=== PATIENT | female | born 1970 | race Hispanic/Latino ===

== ENCOUNTER 2018-12-12 18:26 | Inpatient (IN) | payer OTHER, BC ==
[~2018-12-12] VITALS: Ht 154.9 cm; Wt 73.5 kg
[2018-12-12] MEDS ORDERED: MORPHINE SULFATE INJ 4 MG/ML INJ 1ML IV ONE (19:28)
[2018-12-12] MEDS ORDERED: ONDANSETRON HCL INJ 2MG/ML 2ML 2 MG/ML VIAL IV ONE (19:28)
[2018-12-12] MEDS ORDERED: DICYCLOMINE HCL 20 MG/2 ML VIAL IM ONE (19:30)
[2018-12-12 19:41] LABS: BILIRUBIN,URINE NEGATIVE (NEGATIVE); CLARITY,URINE CLEAR (CLEAR); COLOR,URINE YELLOW (YELLOW); KETONES,URINE NEGATIVE (NEGATIVE); LEUKOCYTE ESTERASE ,URINE NEGATIVE (NEGATIVE); NITRITE,URINE NEGATIVE (NEGATIVE); PROTEIN,URINE DIPSTICK NEGATIVE (NEGATIVE); URINE UROBILINOGEN 0.2 mg/dL (0.2 - 1)
[2018-12-12 19:55] LABS: BACTERIA,URINE MODERATE /HPF; EPITHELIAL CELLS,URINE MANY /LPF
[2018-12-12 19:56] LABS: AMORPHOUS SEDIMENT,URINE FEW (FEW); MUCUS,URINE FEW (RARE)
[2018-12-12 22:15] LABS: BASOPHILS % 0.4 % (0.0-1.0); EOSINOPHILS % 0.1 % (0.0-6.0); HEMATOCRIT 24.5 % (34.2-44.1); HEMOGLOBIN 7.6 g/dL (12.0-16.0); LYMPHOCYTES # (AUTO) 1.2 (1.0-3.2); LYMPHOCYTES % 17.1 % (18.0-39.1); MEAN CORPUSCULAR HEMOGLOBIN 25.2 pg (28-32); MEAN CORPUSCULAR VOLUME 81.1 fL (81-99); MONOCYTES # (AUTO) 0.5 (0.2-0.8); MONOCYTES % 6.8 % (4.4-11.3); NEUTROPHILS # (AUTO) 5.1 (2.1-6.9); NEUTROPHILS % 75.5 % (38.7-80.0); PLATELET COUNT 296 x10e3/uL (140-360); RED BLOOD COUNT 3.02 x10e6/uL (3.6-5.1); RED CELL DISTRIBUTION WIDTH 18.6 % (11.7-14.4)
--- NOTE | 2018-12-12 22:21 | Diagnostic Imaging Report ---
EXAM: Gallbladder Ultrasound INDICATION: Abdominal pain COMPARISON: None. TECHNIQUE: Transverse and longitudinal images of the gallbladder were obtained. FINDINGS: Liver: Normal size, 16 cm in cranial caudal dimension. Main portal vein nondilated. Hepatopedal flow in the main portal vein. Diffuse increased hepatic echogenicity. Gallbladder: Stones/Sludge: Echogenic shadowing gallstones, multiple are seen in the gallbladder neck. Wall: 0.3 cm, mildly thickened. Sonographic Galvan's Sign: Positive No pericholecystic fluid. The gallbladder is mildly distended. Bile Ducts: Intrahepatic Ducts: No dilatation Extrahepatic Ducts: Common bile duct measures 0.4 cm, no dilatation Free Fluid: No ascites or pleural effusion Pancreas is obscured by overlying bowel gas. Visualized portions of the aorta and inferior vena cava are unremarkable. IMPRESSION: 1. Cholelithiasis and positive sonographic Galvan's sign is suggestive of acute cholecystitis. 2. Findings suggestive of hepatic steatosis. Signed by: Dakota Starkey DO on 12/12/2018 10:17 PM
[2018-12-12 22:39] LABS: ALANINE AMINOTRANSFERASE 17 IU/L (0-55); ALBUMIN 3.3 g/dL (3.5-5.0); ALBUMIN/GLOBULIN RATIO 1.1 (0.8-2.0); ALKALINE PHOSPHATASE 46 IU/L (40-150); AMYLASE 46 U/L (25-125); ANION GAP 13.7 mmol/L (8-16); BLOOD UREA NITROGEN 17 mg/dL (7-26); BUN/CREATININE RATIO 24 (6-25); CALCIUM 8.8 mg/dL (8.4-10.2); CARBON DIOXIDE 22 mmol/L (22-29); CHLORIDE 109 mmol/L (98-107); CREATINE KINASE 43 IU/L (29-168); CREATININE, SERUM 0.72 mg/dL (0.57-1.11); EST GLOMERULAR FILTRATION RATE > 60 ML/MIN (60-); GLUCOSE 88 mg/dL (74-118); LIPASE 17 U/L (8-78); POTASSIUM 3.7 mmol/L (3.5-5.1); SODIUM 141 mmol/L (136-145)
--- OUTSIDE RECORDS SUMMARY | 2018-12-12 23:08 | XMS REPORT ---
Author Author [facility] Address Unknown Phone Unavailable Care Team Providers Care Sailing Officer Name Role Phone MARCELL CALLOWAY Unavailable Unavailable Problems This patient has no known problems. Allergies, Adverse Reactions, Alerts This patient has no known allergies or adverse reactions. Medications This patient has no known medications. Results Test Description Test Time Test Comments Text Results Atomic Results Result Comments US GALLBLADDER 2018-12-12 22:15:00 [place] [address] Patient Name: JUAN MANUEL JEFFERSON MR #: [id number] : 1970 Age/Sex: 48/F Req #: [id number] [facility] Physician: Ordered by: DEE DEE WELLER SURGICAL SERVICES COORDINATOR Report #: [id number] Location: ER Room/Bed: Procedure: [id number] US/US GALLBLADDER Exam Date: 12/12/18 Exam Time: 2009 REPORT STATUS: Signed EXAM: Gallbladder Ultrasound INDICATION: Abdominal pain COMPARISON: None. TECHNIQUE: Transverse and longitudinal images of the gallbladder were obtained. FINDINGS: Liver: Normal size, 16 cm in cranial caudal dimension. Main portal vein nondilated. Hepatopedal flow in the main portal vein. Diffuse increased hepatic echogenicity. Gallbladder: Stones/Sludge: Echogenic shadowing gallstones, multiple are seen in the g allbladder neck. Wall: 0.3 cm, mildly thickened. Sonographic Galvan's Sign: Positive No pericholecystic fluid. The gallbladder is mildly distended. Bile Ducts: Intrahepatic Ducts: No dilatation Extrahepatic Ducts: Common bile duct measures 0.4 cm, no dilatation Free Fluid: No ascites or pleural effusion Pancreas is obscured by overlying bowel gas. Visualized portions of the aorta and inferior vena cava are unremarkable. IMPRESSION: 1. Cholelithiasis and positive sonographic Galvan's sign is suggestive of acute cholecystitis. 2. Findings suggestive of hepatic steatosis. Signed by: Dakota Starkey DO on 12/12/2018 10:17 PM Dictated By: DAKOTA STARKEY DO 16 Transcribed By: JAMIE on 12/12/182216 COPY TO: DEE DEE WELLER NP
[2018-12-13] VITALS (9 sets, daily range): BP systolic 106–142; BP diastolic 63–87
--- NOTE | 2018-12-13 01:28 | NUR ---
patient is a new admit that arrived via wheelchair. patient is alert and oriented. patient has been assisted into the bed. bed is in the lowest position and call light is within reach. will continue to monitor patient.
[2018-12-13] MEDS: SODIUM CHLORIDE 0.9% 1000ML 1,000 ML IV SCH ×4 (01:58→23:12)
[2018-12-13] MEDS: ONDANSETRON HCL INJ 2MG/ML 2ML 2 MG/ML VIAL IV PRN ×3 (02:00→16:10)
[2018-12-13] MEDS: MORPHINE SULFATE INJ 4 MG/ML INJ 1ML IV PRN ×4 (02:00→22:03)
[2018-12-13] MEDS ORDERED: PREDNISONE10 MG PO (02:12)
[2018-12-13] MEDS ORDERED: METHOTREXATE2.5 MG PO (02:12)
[2018-12-13] MEDS ORDERED: FOLIC ACID1 MG PO (02:12)
[2018-12-13] MEDS ORDERED: TAMOXIFEN CITRA10 MG PO (02:12)
[2018-12-13] MEDS: PIPER-TAZ 3.375 GM / NS 50ML IV SCH ×3 (05:08→22:03)
[2018-12-13] MEDS ORDERED: ACETAMINOPHEN 1000 MG/100 ML IV STA (05:50)
--- NOTE | 2018-12-13 06:16 | NUR ---
Consulted physician Dr Do's office has been notified of routine consultation.
--- NOTE | 2018-12-13 06:58 | NUR ---
report given to day nurse. patient is resting comfortably in bed, bed is in lowest position and call montes de oca is within reach
[2018-12-13 08:01] LABS: BASOPHILS % 0.4 % (0.0-1.0); EOSINOPHILS % 0.7 % (0.0-6.0); HEMATOCRIT 23.9 % (34.2-44.1); HEMOGLOBIN 7.5 g/dL (12.0-16.0); LYMPHOCYTES # (AUTO) 0.7 (1.0-3.2); LYMPHOCYTES % 16.4 % (18.0-39.1); MEAN CORPUSCULAR HEMOGLOBIN 25.8 pg (28-32); MEAN CORPUSCULAR HGB CONC 31.4 g/dL (31-35); MEAN CORPUSCULAR VOLUME 82.1 fL (81-99); MONOCYTES # (AUTO) 0.4 (0.2-0.8); MONOCYTES % 7.8 % (4.4-11.3); NEUTROPHILS # (AUTO) 3.4 (2.1-6.9); NEUTROPHILS % 74.5 % (38.7-80.0); PLATELET COUNT 274 x10e3/uL (140-360); RED BLOOD COUNT 2.91 x10e6/uL (3.6-5.1); RED CELL DISTRIBUTION WIDTH 18.6 % (11.7-14.4)
[2018-12-13 08:19] LABS: ALANINE AMINOTRANSFERASE 16 IU/L (0-55); ALBUMIN/GLOBULIN RATIO 1.1 (0.8-2.0); ALKALINE PHOSPHATASE 44 IU/L (40-150); AMYLASE 50 U/L (25-125); ANION GAP 10.7 mmol/L (8-16); BLOOD UREA NITROGEN 16 mg/dL (7-26); BUN/CREATININE RATIO 21 (6-25); CALCIUM 8.5 mg/dL (8.4-10.2); CARBON DIOXIDE 25 mmol/L (22-29); CHLORIDE 108 mmol/L (98-107); CREATININE, SERUM 0.76 mg/dL (0.57-1.11); EST GLOMERULAR FILTRATION RATE > 60 ML/MIN (60-); GLUCOSE 83 mg/dL (74-118); LIPASE 21 U/L (8-78); POTASSIUM 3.7 mmol/L (3.5-5.1); SODIUM 140 mmol/L (136-145)
--- NOTE | 2018-12-13 08:23 | Consultation ---
DATE OF CONSULTATION: 12/13/2018 HISTORY OF PRESENT ILLNESS: The patient is a 48-year-old female, who came into the emergency room with complaints of abdominal pain. She said she has had the pain for two days. Evaluation has revealed gallstones with abdominal tenderness. The patient says the pain is somewhat less now. She has also been found to be anemic. She is not sure if she has had any bleeding. She has no nausea or vomiting. Her pain is somewhat less now. Ultrasound of the gallbladder revealed gallstones with a positive Galvan sign. PAST MEDICAL HISTORY: Significant for carcinoma of the breast, for which she has had surgery and then subsequent chemotherapy. She also has history of hypertension. She has history of rheumatoid arthritis also. MEDICATIONS: At home are folic acid, methotrexate, prednisone, tamoxifen. ALLERGIES: SHE HAS ALLERGY TO AN ANTIBIOTIC. SHE IS NOT SURE WHICH ONE IT IS. FAMILY HISTORY: Noncontributory. SOCIAL HISTORY: The patient does not smoke cigarettes or drink alcohol. REVIEW OF SYSTEMS: As stated above. She says she has felt tired recently. She denies nausea, vomiting, or weight loss. PHYSICAL EXAMINATION: GENERAL: The patient is awake and alert. VITAL SIGNS: Normal. She is not tachycardic. HEENT: The sclerae is not icteric. NECK: Supple. No masses. LUNGS: Equal breath sounds are clear bilaterally. CARDIAC: Regular rate and rhythm with no murmur. ABDOMEN: Tender in the epigastric and right upper quadrant. There are no signs of peritonitis. No mass. No distention. No organomegaly. EXTREMITIES: Have no edema. NEUROLOGIC: Grossly intact. ASSESSMENT: A 48-year-old female with findings suggestive of acute on chronic cholecystitis with cholelithiasis, but also anemia. Plan to transfuse her 1 unit of packed red blood cells. She is to be seen by GI and tentatively planned cholecystectomy for tomorrow. Proposed surgery was explained to the patient including risks, benefits, and alternatives. She understands she has had the opportunity to ask questions. She is aware of the possible need for open surgery. Thank you for asking me to see Ms. Mitchell. MD ORLANDO Pereira/JESUS /[id number]
[2018-12-13] MEDS: PREDNISONE 20 MG TAB PO SCH (09:00)
[2018-12-13] MEDS: TAMOXIFEN CITRATE 10 MG TAB PO SCH (10:00)
[2018-12-13] MEDS ORDERED: SODIUM CHLORIDE 0.9% 250ML 250 ML ONE (10:02)
[2018-12-13] MEDS: FOLIC ACID 1 MG TAB PO SCH (10:40)
--- NOTE | 2018-12-13 13:50 | NUR ---
Visit made by the Spiritual Care Department Pastoral Visitor, Sherri Agarwal. PV provided pastoral presence, prayer, hospitality, and supportive listening. Pastoral Visitor informed pt/family of the scope of [facility] and availability. DARRYL POLLACK Accounts Payable Representative Spiritual Care Department O: [phone] Pager: [phone] ([phone] number calling from)
[2018-12-13 16:22] LABS: BASOPHILS % 0.5 % (0.0-1.0); EOSINOPHILS % 0.8 % (0.0-6.0); HEMATOCRIT 26.7 % (34.2-44.1); HEMOGLOBIN 8.5 g/dL (12.0-16.0); LYMPHOCYTES # (AUTO) 0.7 (1.0-3.2); LYMPHOCYTES % 18.7 % (18.0-39.1); MEAN CORPUSCULAR HEMOGLOBIN 26.6 pg (28-32); MEAN CORPUSCULAR HGB CONC 31.8 g/dL (31-35); MEAN CORPUSCULAR VOLUME 83.4 fL (81-99); MONOCYTES # (AUTO) 0.3 (0.2-0.8); NEUTROPHILS # (AUTO) 2.7 (2.1-6.9); NEUTROPHILS % 72.7 % (38.7-80.0); PLATELET COUNT 261 x10e3/uL (140-360)
--- NOTE | 2018-12-13 19:10 | NUR ---
Report given to oncoming nurse of patient's status. Resting in bed, side rails upx2, call light within reach. No s/s of acute distress noted.
[2018-12-13] MEDS ORDERED: DICYCLOMINE HCL 20 MG/2 ML VIAL IM NR (19:30)
--- NOTE | 2018-12-13 20:00 | NUR ---
pt received. pt assessed. no ss of distress noted. pt co abd pain. discussed pain mngt poc. verbalized understanding. will medicate per orders. will cont to follow poc. call montes de oca within reach.
--- NOTE | 2018-12-13 21:00 | NUR ---
pt showered. linen changed. no distress noted. call montes de oca within reach.
--- NOTE | 2018-12-13 21:50 | NUR ---
consent signed at time. no distress noted. call montes de oca within reach.
[2018-12-14] VITALS (8 sets, daily range): BP systolic 113–141; BP diastolic 74–80
--- NOTE | 2018-12-14 | NUR ---
pt npo at time per orders. verbalized understanding. call montes de oca within reach.
--- NOTE | 2018-12-14 01:38 | Consultation ---
DATE OF CONSULTATION: 12/13/2018 HISTORY OF PRESENT ILLNESS: This is 48-year-old who admitted to the hospital because of abdominal pain, which is mainly in the epigastric area. The patient however, was found to have significant anemia with a hemoglobin as low as 7.5. She did receive blood transfusions. Hemoglobin went up to 8.5. She reports that she has some black stool. She denies any history of ulcer disease before and she also never have a colonoscopy. PAST MEDICAL PROBLEMS: Significant for history of breast cancer and she has surgery for that and chemotherapy, history of hypertension, and history of rheumatoid arthritis. MEDICATIONS: At home including methotrexate, prednisone, tamoxifen, and folic acid. ALLERGIES: SOME ANTIBIOTIC, BUT IS NOT SURE. SOCIAL HISTORY: Does not smoke or drink. FAMILY HISTORY: Noncontributory. REVIEW OF SYSTEMS: Denies any chest pain or shortness of breath. Denies any dysphagia, or odynophagia. Denies any dysuria, hematuria, or any kind of syncopal episode. PHYSICAL EXAMINATION: GENERAL: The patient is awake and alert, appears to be stable. Not in acute distress at this point. VITAL SIGNS: Afebrile currently. HEAD, EYES, EARS, NOSE, AND THROAT: Normocephalic and atraumatic. Sclera is anicteric. NECK: Supple. HEART: Exam is regular. ABDOMEN: Soft. There is some tenderness significant in the patient's care. There is no rebound or mass. EXTREMITIES: No cyanosis. No clubbing. LABORATORY DATA: As of today, WBC of 3.74, hemoglobin of 8.5, and hematocrit 26.7. BUN and creatinine are normal. Gallbladder ultrasound shows gallstone with possible cholecystitis. Also has some fatty liver. IMPRESSION: 1. Pain. The patient has gallstones. 2. GI bleed with melena. 3. Anemia. RECOMMENDATIONS: We will proceed with EGD for further evaluation tomorrow. We would hold off cholecystectomy until EGD is done and discussed with Dr. Lentz, patient, and family and they understand and we will proceed tomorrow. MD VLADIMIR Clark/JESUS /[id number] cc: MD Barrera Edge MD
--- NOTE | 2018-12-14 05:00 | NUR ---
pt resting. no ss of distress noted. call montes de oca within reach.
[2018-12-14] MEDS: PIPER-TAZ 3.375 GM / NS 50ML IV SCH ×3 (05:34→22:01)
[2018-12-14] MEDS: SODIUM CHLORIDE 0.9% 1000ML 1,000 ML IV SCH ×2 (05:34→15:52)
[2018-12-14 06:14] LABS: BASOPHILS % 0.3 % (0.0-1.0); EOSINOPHILS # (AUTO) 0.1 (0.0-0.4); EOSINOPHILS % 2.6 % (0.0-6.0); HEMATOCRIT 27.6 % (34.2-44.1); HEMOGLOBIN 8.4 g/dL (12.0-16.0); LYMPHOCYTES # (AUTO) 0.7 (1.0-3.2); LYMPHOCYTES % 19.8 % (18.0-39.1); MEAN CORPUSCULAR HEMOGLOBIN 25.7 pg (28-32); MEAN CORPUSCULAR HGB CONC 30.4 g/dL (31-35); MEAN CORPUSCULAR VOLUME 84.4 fL (81-99); MONOCYTES # (AUTO) 0.3 (0.2-0.8); MONOCYTES % 8.9 % (4.4-11.3); NEUTROPHILS # (AUTO) 2.4 (2.1-6.9); NEUTROPHILS % 68.1 % (38.7-80.0); PLATELET COUNT 252 x10e3/uL (140-360); RED BLOOD COUNT 3.27 x10e6/uL (3.6-5.1); RED CELL DISTRIBUTION WIDTH 18.1 % (11.7-14.4)
[2018-12-14 06:32] LABS: INR 0.94; PROTHROMBIN TIME 13.1 seconds (11.9-14.5)
[2018-12-14 06:42] LABS: ALANINE AMINOTRANSFERASE 18 IU/L (0-55); ALBUMIN 2.9 g/dL (3.5-5.0); ALBUMIN/GLOBULIN RATIO 1.2 (0.8-2.0); ALKALINE PHOSPHATASE 50 IU/L (40-150); ANION GAP 12.6 mmol/L (8-16); BLOOD UREA NITROGEN 10 mg/dL (7-26); BUN/CREATININE RATIO 13 (6-25); CALCIUM 8.7 mg/dL (8.4-10.2); CARBON DIOXIDE 22 mmol/L (22-29); CHLORIDE 110 mmol/L (98-107); EST GLOMERULAR FILTRATION RATE > 60 ML/MIN (60-); GLUCOSE 78 mg/dL (74-118); POTASSIUM 3.6 mmol/L (3.5-5.1); SODIUM 141 mmol/L (136-145)
--- NOTE | 2018-12-14 07:06 | NUR ---
Received patient with eyes open lying in bed. Respiration even and unlabored without SOB. Call light in reach.
[2018-12-14] MEDS: TAMOXIFEN CITRATE 10 MG TAB PO SCH (09:00)
[2018-12-14] MEDS: PREDNISONE 20 MG TAB PO SCH (09:00)
[2018-12-14] MEDS: FOLIC ACID 1 MG TAB PO SCH (09:00)
--- NOTE | 2018-12-14 11:48 | NUR ---
Patient went to OR at this time.
[2018-12-14] MEDS ORDERED: BUPIVACAINE 0.25%/EPI 30ML SDV INJ ONE (13:32)
[2018-12-14] MEDS ORDERED: PIPER-TAZ 3.375 GM 50 ML ONE (13:54)
[2018-12-14] MEDS ORDERED: FENTANYL CITRATE/PF 100MCG/2 ML INJ ONE ×2 (14:43→14:44)
[2018-12-14] MEDS ORDERED: MIDAZOLAM HCL 2 MG/2 ML VIAL ONE ×2 (14:43→14:44)
[2018-12-14] MEDS ORDERED: SEVOFLURANE INHAL SOLN 250 ML PEN BTL ONE (15:01)
[2018-12-14] MEDS ORDERED: GLYCOPYRROLATE INJ 1MG/ 5 ML SYR ONE (15:01)
[2018-12-14] MEDS ORDERED: ONDANSETRON HCL INJ 2MG/ML 2ML 2 MG/ML VIAL ONE (15:01)
[2018-12-14] MEDS ORDERED: ROCURONIUM BROMIDE 10 MG/ML 5ML VIAL ONE (15:01)
[2018-12-14] MEDS ORDERED: DEXAMETHASONE SOD PHOS INJ 4 MG/ML VIAL ONE (15:01)
[2018-12-14] MEDS ORDERED: KETOROLAC TROMETHAMINE 30 MG/ML VIAL ONE (15:01)
[2018-12-14] MEDS ORDERED: MORPHINE SULFATE 2 MG/ML SYR 1ML ONE (15:01)
[2018-12-14] MEDS ORDERED: PROPOFOL IV EMULSION 10 MG/ML 20 ML VIAL ONE (15:01)
[2018-12-14] MEDS ORDERED: NEOSTIGMINE 5 MG/5ML SYR ONE (15:01)
[2018-12-14] MEDS ORDERED: LIDOCAINE HCL 2% LOCAL INJ 5 ML SDV VIAL INJ ONE (15:01)
[2018-12-14] MEDS ORDERED: HYDROMORPHONE 1MG/1ML INJ ONE (15:04)
--- NOTE | 2018-12-14 15:08 | NUR ---
Patient returned from surgery at this time.
[2018-12-14] MEDS: ONDANSETRON HCL INJ 2MG/ML 2ML 2 MG/ML VIAL IV PRN (15:52)
[2018-12-14] MEDS: MORPHINE SULFATE INJ 4 MG/ML INJ 1ML IV PRN ×2 (15:52→22:01)
--- NOTE | 2018-12-14 16:22 | Operative Report ---
DATE OF PROCEDURE: 12/14/2018 SURGEON: Barrera Lentz MD PREOPERATIVE DIAGNOSIS: [id number] cholecystitis, cholelithiasis. POSTOPERATIVE DIAGNOSIS: [id number] cholecystitis, cholelithiasis. PROCEDURES: Diagnostic laparoscopy, laparoscopic cholecystectomy. AUTO BODY DETAILER: None. ANESTHESIA: General. INDICATIONS AND FINDINGS: The patient is a 48-year-old female, admitted to the hospital with complaints of right upper quadrant abdominal pain, workup revealed gallstones. At Surgery, based on the gallbladder was very distended with stone impacting the gallbladder neck, cystic duct was about 2 mm in diameter, common bile duct was about 5 mm in diameter. Liver appeared normal. Lower abdomen appeared normal. TECHNIQUE: After adequate general endotracheal anesthesia, the patient is in supine position, the abdomen was prepped and draped in sterile fashion with ChloraPrep solution. Skin in the umbilicus was infiltrated with 0.5% Marcaine. Incision was made in the umbilicus, abdominal wall was elevated and Veress needle was introduced. Pneumoperitoneum was then created. A 10 mm trocar and cannula was then passed through the umbilical wound. Laparoscopic camera was introduced. Initial laparoscopy revealed, gallbladder to be very distended. Liver and lower abdomen appeared normal. A 10 mm trocar and cannula were placed in the epigastrium and two 5 mm trocars and cannulas were placed in right upper quadrant. These were placed under direct vision. Fundus of the gallbladder was grasped, retracted superiorly. There were stones impacted in the gallbladder neck. These were pushed back up toward the fundus. Neck of the gallbladder was grasped, retracted laterally. Peritoneum over the neck of the gallbladder was incised. The gallbladder cystic duct junction was dissected free. Cystic artery was also dissected free. The cystic duct was divided between hemoclips with three clips being left on the common bile duct side. Cystic artery was also divided between hemoclips close to the gallbladder. The gallbladder was dissected free from the liver using scissors and electrocautery. Once it was entirely free, it was placed into an Endopouch and brought through the epigastric cannula. There were multiple stones. Gallbladder bed was inspected for hemostasis, which was seen to be adequate. It was irrigated with saline. All fluid aspirated, inspected once again for hemostasis, which was seen to be adequate. Instruments and cannulas were then removed. Pneumoperitoneum was evacuated. Wounds were then closed. Fascia in the umbilical and epigastric wound closed with 0 Vicryl. Skin to all wounds closed with bennett. Sterile dressings applied to each wound. The patient tolerated the procedure well. Estimated blood loss was 10 mL. There were no complications. All counts were correct. The patient was taken to the recovery room in satisfactory condition. MD ORLANDO Pereira/JESUS /[id number]
[2018-12-14] MEDS: HYDROCODONE/APAP 5MG-325MG TAB PO PRN (17:49)
--- NOTE | 2018-12-14 18:58 | NUR ---
Report given to restaurant shift leader. Patient awake lying in bed with eyes open. respiration even and unlabored without SOB. Call light in reach.
[2018-12-15] MEDS: SODIUM CHLORIDE 0.9% 1000ML 1,000 ML IV SCH ×2 (00:14→09:11)
[2018-12-15 01:04] VITALS: BP 123/70
[2018-12-15 04:29] VITALS: BP 117/71
[2018-12-15] MEDS: MORPHINE SULFATE INJ 4 MG/ML INJ 1ML IV PRN (05:36)
[2018-12-15] MEDS: PIPER-TAZ 3.375 GM / NS 50ML IV SCH ×2 (06:17→14:00)
[2018-12-15 06:47] LABS: BASOPHILS % 0.3 % (0.0-1.0); EOSINOPHILS # (AUTO) 0.1 (0.0-0.4); EOSINOPHILS % 0.9 % (0.0-6.0); HEMATOCRIT 26.6 % (34.2-44.1); HEMOGLOBIN 8.2 g/dL (12.0-16.0); LYMPHOCYTES # (AUTO) 0.8 (1.0-3.2); LYMPHOCYTES % 11.1 % (18.0-39.1); MEAN CORPUSCULAR HEMOGLOBIN 25.3 pg (28-32); MEAN CORPUSCULAR HGB CONC 30.8 g/dL (31-35); MEAN CORPUSCULAR VOLUME 82.1 fL (81-99); MONOCYTES # (AUTO) 0.3 (0.2-0.8); NEUTROPHILS # (AUTO) 5.6 (2.1-6.9); NEUTROPHILS % 82.4 % (38.7-80.0); PLATELET COUNT 260 x10e3/uL (140-360); RED BLOOD COUNT 3.24 x10e6/uL (3.6-5.1); RED CELL DISTRIBUTION WIDTH 18.4 % (11.7-14.4)
--- NOTE | 2018-12-15 07:00 | NUR ---
BEDSIDE SHIFT REPORT RECEIVED FROM USER ACCEPTANCE TESTER RN. PT DENIES NEEDS AT THIS TIME.
[2018-12-15 07:06] LABS: ALANINE AMINOTRANSFERASE 28 IU/L (0-55); ALBUMIN 2.7 g/dL (3.5-5.0); ALKALINE PHOSPHATASE 45 IU/L (40-150); ANION GAP 11.2 mmol/L (8-16); BLOOD UREA NITROGEN 8 mg/dL (7-26); BUN/CREATININE RATIO 10 (6-25); CALCIUM 8.4 mg/dL (8.4-10.2); CARBON DIOXIDE 24 mmol/L (22-29); CHLORIDE 106 mmol/L (98-107); CREATININE, SERUM 0.77 mg/dL (0.57-1.11); EST GLOMERULAR FILTRATION RATE > 60 ML/MIN (60-); GLUCOSE 79 mg/dL (74-118); MAGNESIUM 1.6 MG/DL (1.3-2.1); POTASSIUM 3.2 mmol/L (3.5-5.1); SODIUM 138 mmol/L (136-145)
[2018-12-15 08:00] VITALS: BP 130/74
[2018-12-15] MEDS: TAMOXIFEN CITRATE 10 MG TAB PO SCH (09:10)
[2018-12-15] MEDS: PREDNISONE 20 MG TAB PO SCH (09:10)
[2018-12-15] MEDS: FOLIC ACID 1 MG TAB PO SCH (09:10)
[2018-12-15 10:26] VITALS: BP 130/74
[2018-12-15] MEDS: HYDROCODONE/APAP 5MG-325MG TAB PO PRN (10:55)
[2018-12-15 12:00] VITALS: BP 129/79
[2018-12-15] MEDS ORDERED: ONDANSETRON HCL 4 MG ORAL DISINTEGRATING TAB PO PRN (12:45)
--- NOTE | 2018-12-15 14:10 | NUR ---
OK PER DR. ARAUZ TO DISCHARGE HOME.
[2018-12-19] MEDS ORDERED: METHOTREXATE SOD 2.5 MG TAB PO SCH (09:00)
--- NOTE | 2018-12-25 16:40 | Discharge Summary ---
DISCHARGE DIAGNOSES: 1. Gastrointestinal bleed. 2. Anemia. 3. Acute cholecystitis, status post laparoscopic cholecystectomy. HISTORY OF PRESENT ILLNESS AND HOSPITAL COURSE: See hospital chart for full details. The patient is a lady, who presented with significant abdominal pain, where she was found to have acute cholecystitis as well as evidence of GI bleed with melenic stools. She was seen by both GI and Surgery. She had an EGD performed. Please see their notes for full details. She was placed on proton pump inhibitor with significant improvement of her abdominal pain, but she also was noticed to have evidence of acute cholecystitis, so she had a laparoscopic cholecystectomy performed without complications. Postoperatively, the patient did actually very well. Her anemia stayed stable and she was able to be discharged home with proton pump inhibitor and follow up in 1 to 2 weeks with me with a repeat CBC. The patient at the time of discharge is eating well. She was ambulating well. She states she had significant improvement of her overall pain, was really happy to go home. Please see hospital chart for full details. MD KATY Egde/JESUS /[id number]
== END 2018-12-15 14:47 | disposition home or self-care (01) | DRG 418 ==
LOC: ER 18:26 → ERHOLD 23:04 → INTOOBSV 23:04 → MED/SURG 12-13 01:27 → OBSVTOIN 12-14 08:37
PROVIDERS: ADMIT Internal Medicine; ATTEND Internal Medicine
PROC: 30233N1 Transfusion of Nonautologous Red Blood Cells into Peripheral Vein, Percutaneous Approach (ICD-10-PCS; 2018-12-14)
PROC: 0DB38ZX Excision of Lower Esophagus, Via Natural or Artificial Opening Endoscopic, Diagnostic (ICD-10-PCS; 2018-12-14)
PROC: 0FT44ZZ Resection of Gallbladder, Percutaneous Endoscopic Approach (ICD-10-PCS; principal; 2018-12-14 12:06)
DX: K80.00 Calculus of gallbladder with acute cholecystitis without obstruction (principal); K92.1 Melena; D50.0 Iron deficiency anemia secondary to blood loss (chronic); Z85.3 Personal history of malignant neoplasm of breast; Z82.49 Family history of ischemic heart disease and other diseases of the circulatory system; M06.9 Rheumatoid arthritis, unspecified; K80.12 Calculus of gallbladder with acute and chronic cholecystitis without obstruction; E66.9 Obesity, unspecified; Z68.30 Body mass index [BMI] 30.0-30.9, adult; D72.819 Decreased white blood cell count, unspecified
CPT/HCPCS: 36415; 43239; 76705; 80053; 81001; 82150; 82550; 82553; 83690; 83735; 84484; 85025; 85610; 86850; 86900; 86920; 88304; 88305; 93005; 96367; 96372; 96376; 99284; G0378; J0500; J1100; J1170; J1885; J2001; J2250; J2270; J2405; J2543; J3010; J7030; J7050; J7512; P9016